=== PATIENT | female | born 1950 | race African-American/Black ===

== ENCOUNTER 2022-04-19 07:02 | Inpatient (IN) | payer BC ==
[~2022-04-19] VITALS: Ht 160 cm; Wt 99.8 kg
[2022-04-19 11:29] LABS: BASOPHILS % 0.3 % (0.0-2.0); HEMATOCRIT. 39.3 % (36.0-48.0); HEMOGLOBIN. 12.9 g/dL (12.0-16.0); MEAN CORPUSCULAR HEMOGLOBIN 28.9 pg (28.0-32.0); MEAN CORPUSCULAR VOLUME 88.1 fL (81.0-99.0); MEAN PLATELET VOLUME 8.3 fl (7.4-10.4); MONOCYTES % 7.7 % (2.0-8.0); PLATELET 224 x1000/uL (130-400); RED BLOOD CELL COUNT 4.46 mill/uL (4.2-5.4); RED CELL DISTRIBUTION WIDTH 14.8 % (11.6-14.6)
[2022-04-19 11:43] LABS: CHLORIDE 109 mEq/L (98-107)
[2022-04-19] MEDS ORDERED: SODIUM CHLORIDE 0.9% 1,000 ML IV ONE (15:30)
[2022-04-20 08:00] VITALS: BP 146/82
[2022-04-20] MEDS ORDERED: ONDANSETRON HCL 4MG/2ML INJ IV PRN (09:00)
[2022-04-20 16:00] VITALS: BP 107/34
[2022-04-20 20:00] VITALS: BP 105/59
[2022-04-21] VITALS: BP 147/77
[2022-04-21 04:00] VITALS: BP 135/63
[2022-04-21 08:00] VITALS: BP 145/55
[2022-04-21] MEDS: MEGESTROL ACETATE 400 MG/10 ML UDC PO SCH ×2 (09:00→09:15)
[2022-04-21] MEDS ORDERED: ATOR20TA65 MT (11:33)
[2022-04-21] MEDS ORDERED: IRBE300T17 MT (11:34)
[2022-04-21] MEDS ORDERED: MEMA28CA MT (11:35)
[2022-04-21] MEDS ORDERED: SERT-422 MT (11:36)
[2022-04-21] MEDS: ACETAMINOPHEN 325MG TABLET PO PRN (11:37)
[2022-04-21 12:00] VITALS: BP 115/68
[2022-04-21 16:00] VITALS: BP 101/71
[2022-04-21 20:00] VITALS: BP 121/61
[2022-04-22] VITALS: BP 126/60
[2022-04-22] MEDS: ACETAMINOPHEN 325MG TABLET PO PRN (03:39)
[2022-04-22 04:00] VITALS: BP 124/48
[2022-04-22 08:00] VITALS: BP 120/62
[2022-04-22 12:00] VITALS: BP 121/59
[2022-04-22 13:00] VITALS: BP 121/59
[2022-04-22 16:00] VITALS: BP 121/57
== END 2022-04-22 18:53 | disposition home or self-care (01) | DRG 641 ==
LOC: ER 07:54 → EDBEDREQTM 18:36 → EDBEDREQ 18:36 → CANRESERV 19:09 → ENRESERV 19:09 → 6EST 04-20 06:52
PROVIDERS: ADMIT Internal Medicine; ATTEND Internal Medicine
DX: E86.0 Dehydration (principal); F03.90 Unspecified dementia, unspecified severity, without behavioral disturbance, psychotic disturbance, mood disturbance, and anxiety
CPT/HCPCS: 36415; 71045; 80053; 85025; 99285